=== PATIENT | male | born 1980 | race Caucasian/White ===

== ENCOUNTER 2023-08-05 20:02 | Emergency (ER) | payer SELFPAY ==
[2023-08-05 20:37] VITALS: BP 142/81; PULSE 90; RESP 18; TEMP 98.2; O2SAT 98
[2023-08-05] MEDS ORDERED: TETRACAINE HCL ONE (20:45)
[2023-08-05] MEDS ORDERED: TETRACAINE HCL EACHEYE ONE (21:00)
[2023-08-05] MEDS ORDERED: ERYTHROMYCIN ONE (21:40)
[2023-08-05] MEDS ORDERED: ERYTHROMYCIN BOTH EYES ONE (22:00)
== END 2023-08-05 22:00 | disposition home or self-care (01) ==
LOC: ER 20:02
DX: H10.33 Unspecified acute conjunctivitis, bilateral (principal)
CPT/HCPCS: 99282